=== PATIENT | female | born 1960 | race American Indian/Alaskan Native ===

== ENCOUNTER 2018-06-13 14:59 | Outpatient (CLI) | payer BC, OTHER | END 2018-06-13 15:00 | disposition home or self-care (01) | LOC: LABHHL 14:59 | PROVIDERS: ATTEND Surgery | DX: D24.2 Benign neoplasm of left breast (principal) | CPT/HCPCS: 88305 ==

== ENCOUNTER 2018-07-24 06:07 | Day surgery (SDC) | payer BC ==
[2018-07-24] MEDS ORDERED: ANCEF/STERILE WATER 2 GM/20 ML IV NR (07:00)
[2018-07-24] MEDS ORDERED: DEMEROL IV PRN (07:09)
[2018-07-24] MEDS ORDERED: ZOFRAN IV PRN (07:09)
[2018-07-24] MEDS ORDERED: DILAUDID IV PRN (07:09)
[2018-07-24] MEDS ORDERED: TORADOL IV PRN (07:09)
[2018-07-24] MEDS ORDERED: DIPRIVAN 10 MG/ML IV ONE ×2 (07:23→07:46)
[2018-07-24] MEDS ORDERED: XYLOCAINE MPF 2% ONE (07:23)
[2018-07-24] MEDS ORDERED: ROBINUL ONE (07:25)
[2018-07-24] MEDS ORDERED: XYLOCAINE 1% 20 mL ONE (07:32)
[2018-07-24] MEDS ORDERED: MARCAINE 0.25% INFILTRATI ONE ×2 (07:32→08:38)
[2018-07-24] MEDS ORDERED: VERSED ONE (07:41)
[2018-07-24] MEDS ORDERED: DILAUDID ONE (07:46)
--- NOTE | 2018-07-24 07:52 | Anesthesia Day of Surgery ---
Anesthesia Day of Surgery - Day of Surgery Patient Examined: Yes Patient H&P Reviewed: Yes Patient is NPO: Yes
--- NOTE | 2018-07-24 07:53 | Anesthesia Consultation ---
Anesthesia Consult and Med Hx Date of service: 07/24/18 - Airway Anesthetic Teeth Evaluation: Good ROM Head & Neck: Adequate Mental/Hyoid Distance: Adequate Mallampati Class: Class II Intubation Access Assessment: Probably Good - Pulmonary Exam CTA: Yes - Cardiac Exam Cardiac Exam: RRR - Pre-Operative Health Status ASA Pre-Surgery Classification: ASA3 Proposed Anesthetic Plan: General (GA with LMA ok,GERD controlled, HTN, DM, no hx of PONV) - Cardiovascular System Hx Hypertension: Yes (SINCE 2005) - Central Nervous System Hx Psychiatric Problems: No - Other Systems Hx Alcohol Use: No Hx Substance Use: No Hx Cancer: No
[2018-07-24] MEDS ORDERED: VERSED IV NR (08:00)
[2018-07-24] MEDS ORDERED: LACTATED RINGERS 1,000 ML IV SCH ×2 (08:00)
[2018-07-24] MEDS ORDERED: SUBLIMAZE ONE (08:37)
[2018-07-24] MEDS ORDERED: XYLOCAINE 1% 20 mL INFILTRATI ONE (08:38)
[2018-07-24] MEDS ORDERED: ZOFRAN ONE (08:48)
[2018-07-24] MEDS ORDERED: NACL 0.9% IR ONE (08:54)
--- NOTE | 2018-07-24 09:40 | Operative Report ---
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 Findings: Known left breast fibroadenoma at the 9 o'clock position with excisional biopsy performed Complications: None Drains: None Estimated blood loss: Minimal Disposition: PACU in good condition Indication for operative procedure: This is a 57-year-old lady with known left breast fibroadenoma at the 9:00 position 5 cm from the nipple. Patient wished to proceed with right breast excisional biopsy of fibroadenoma given symptomatic pain. Patient wished to proceed with the above procedure. The patient was procedure in detail: The patient was taken to the operating room and was laid supine. General anesthesia was administered. The left breast fibroadenoma was palpable at the 9 o'clock position 5 cm from the nipple and confirmed under ultrasound. The left breast was prepped and draped in the normal sterile operative fashion. Timeout was performed. A breast incision was made with a 15 blade knife at the 9:00 position about 5 cm from the nipple with dissection taken down to the subcutaneous tissues. The fibroadenoma was encountered and was dissected free with the aid of the Bovie cautery. The specimen was sent to radiology with clip present and then sent to pathology. Hemostasis was then obtained using the Bovie cautery. The breast cavity was irrigated and suctioned. The deep breast tissues were approximated and closed using interrupted 3-0 Vicryl and skin brought together and closed using a running 4-0 Monocryl followed by skin affix. She tolerated surgery very well and was awakened from anesthesia without any complication and transported to PACU in good condition.
--- NOTE | 2018-07-24 09:43 | Short Stay Summary ---
Short Stay Documentation Date of service: 07/24/18 - History H&P: obtained from office - Allergies and Medications Current Medications: Allergies acetaminophen [From Vicodin] Allergy (Verified 07/17/18 14:18) Chest Pain hydrocodone [From Vicodin] Allergy (Verified 07/17/18 14:18) Chest Pain morphine Allergy (Verified 07/17/18 14:18) Itching prednisone Allergy (Verified 07/17/18 14:18) Dizziness and Vomiting Home Medications Medication Instructions Recorded Confirmed Last Taken Type Amlodipine Besylate [Norvasc] 5 mg PO DAILY 07/17/18 07/24/18 07/24/18 05:40 History Ascorbic Acid [Vitamin C] 500 mg PO DAILY 07/17/18 07/24/18 07/23/18 05:00 History Cyanocobalamin (Vitamin B-12) 1,000 mcg PO DAILY 07/17/18 07/24/18 07/23/18 05: 00 History [Vitamin B-12] Dulaglutide [Trulicity] 0.75 mg SQ QWEEK 07/17/18 07/24/18 07/23/18 05:00 History Garlic 1,000 mg PO DAILY 07/17/18 07/24/18 07/23/18 05:00 History Insulin Aspart [Novolog] 0 unit SQ AC 07/17/18 07/17/18 Unknown History Losartan/Hydrochlorothiazide 1 each PO DAILY 07/17/18 07/24/18 07/23/18 05:00 History [Losartan-Hctz 100-25 mg Tab] Omeprazole 40 mg PO DAILY 07/17/18 07/24/18 07/24/18 05:40 History Simvastatin [Zocor TAB] 20 mg PO QHS 07/17/18 07/24/18 07/23/18 05:00 History Active Medications Cefazolin Sodium (Ancef/Sterile Water 2 Gm/20 Ml) 2 gm IV PREOP NR Stop: 07/24/18 23:45 Hydromorphone HCl (Dilaudid) 0.5 mg IV Q10MIN PRN PRN Reason: Pain , Severe (7-10) Stop: 07/24/18 20:00 Lactated Ringer's (Lactated Ringers) 1,000 mls @ 100 mls/hr IV DIRECT JACK Stop: 07/24/18 22:00 Lactated Ringer's (Lactated Ringers) 1,000 mls @ 100 mls/hr IV DIRECT JACK Stop: 07/24/18 10:00 Last Admin: 07/24/18 07:36 Dose: 100 mls/hr Ketorolac Tromethamine (Toradol) 30 mg IV ONCE PRN PRN Reason: Pain, Moderate (4-6) Stop: 07/24/18 12:00 Meperidine HCl (Demerol) 25 mg IV ONCE PRN PRN Reason: Shivering Stop: 07/24/18 20:00 Midazolam HCl (Versed) 2 mg IV PREOP NR Stop: 07/24/18 23:59 Ondansetron HCl (Zofran) 4 mg IV ONCE PRN PRN Reason: Nausea And Vomiting Stop: 07/24/18 20:00 - Brief post op/procedure progress note Date of procedure: 07/24/18 Pre-op diagnosis: 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 Post-op diagnosis: same Procedure: Left breast fibroadenoma excisional biopsy of the upper inner quadrant Anesthesia: GETA Findings: Left breast fibroadenoma at the 9:00 position Surgeon: RADHA YATES Estimated blood loss: minimal Pathology: list (fibroadenoma) Specimen disposition: to lab Condition: stable - Disposition Condition at discharge: Good Disposition: DC-01 TO HOME OR SELFCARE Short Stay Discharge Plan Activity: other (no heavy lifting) Diet: regular Wound: other (keep incision clean and dry and may shower in 24 hours; no baths, pools or lakes; do not rub or scrub incision) Follow up with: DIMA FREEMAN [Other] - 7 Days RADHA YATES MD [Staff Physician] - 7 Days Prescriptions: traMADol [Ultram 50 MG tab] 50 mg PO Q6HR PRN #25 tablet PRN Reason: Pain
--- NOTE | 2018-07-24 10:22 | Mammography Report ---
SPECIMEN RADIOGRAPH LEFT BREAST: 07/24/18 06:07:00 CLINICAL: Surgical excision of fibroadenoma. FINDINGS: A mass with a biopsy clip is identified within the specimen. IMPRESSION: Excision of the targeted mass.
[2018-07-24] MEDS ORDERED: REGLAN IV PRN (10:45)
[2018-07-24 11:52] VITALS: BP 156/78
--- NOTE | 2018-07-24 12:03 | Post Anesthesia Evaluation ---
- Post Anesthesia Evaluation Patient Participated: Yes Airway Patent: Yes Stable Respiratory Function: Yes Nausea/Vomiting: No Temp > 96.8F: Yes Pain Manageable: Yes Adequeate Hydration: Yes Anesthesia Complications: No
== END 2018-07-24 06:08 | disposition home or self-care (01) ==
LOC: OR 06:07
PROVIDERS: ATTEND Surgery
DX: D24.2 Benign neoplasm of left breast (principal); I10 Essential (primary) hypertension; E78.00 Pure hypercholesterolemia, unspecified; K21.9 Gastro-esophageal reflux disease without esophagitis; E11.9 Type 2 diabetes mellitus without complications; Z79.4 Long term (current) use of insulin; Z79.899 Other long term (current) drug therapy; Z88.1 Allergy status to other antibiotic agents; Z88.5 Allergy status to narcotic agent; Z88.8 Allergy status to other drugs, medicaments and biological substances; Z90.710 Acquired absence of both cervix and uterus; Z90.49 Acquired absence of other specified parts of digestive tract; Z98.891 History of uterine scar from previous surgery; Z80.9 Family history of malignant neoplasm, unspecified
CPT/HCPCS: 19120; 36415; 76098; 82962; 84132; 88307; J0690; J1170; J2250; J2405; J2704; J3010; J7120

== ENCOUNTER 2022-05-24 16:00 | Emergency (ER) | payer OTHER ==
--- NOTE | 2022-05-24 20:06 | Emergency Department Report ---
ED General Adult HPI - General Chief complaint: Syncope Stated complaint: SYNCOPAL EPISODE Time Seen by Provider: 05/24/22 20:03 Source: EMS Mode of arrival: Stretcher Limitations: No Limitations - History of Present Illness Initial comments: The patient presents to the emergency department with a chief complaint of a syncopal episode. Patient states she was at work when she passed out. Patient states she got up from her desk and was walking and fell lightheaded and then passed out. Patient states she has a history of syncope and has been thoroughly worked up by of [facility]. Patient states she has been diagnosed with PSVT and is supposed to take metoprolol 25 mg twice daily but has only been taking it once daily. Patient denies any chest pain prior to or after the incident. Patient states she was told by direct marketing executive to call for bear down whenever she feels like she is going to pass out. -: Sudden Severity scale (0 -10): 0 Consistency: now resolved Improves with: none Worsens with: none Associated Symptoms: denies other symptoms Treatments Prior to Arrival: none - Related Data Home Medications Medication Instructions Recorded Confirmed Last Taken Amlodipine Besylate [Norvasc] 5 mg PO DAILY 07/17/18 07/24/18 07/24/18 05:40 Ascorbic Acid [Vitamin C] 500 mg PO DAILY 07/17/18 07/24/18 07/23/18 05:00 Cyanocobalamin (Vitamin B-12) 1,000 mcg PO DAILY 07/17/18 07/24/18 07/23/18 05:00 [Vitamin B-12] Dulaglutide [Trulicity] 0.75 mg SQ QWEEK 07/17/18 07/24/18 07/23/18 05:00 Garlic 1,000 mg PO DAILY 07/17/18 07/24/18 07/23/18 05:00 Insulin Aspart (Nf) [Novolog] 0 unit SQ AC 07/17/18 07/17/18 Unknown Losartan/Hydrochlorothiazide 1 each PO DAILY 07/17/18 07/24/18 07/23/18 05:00 [Losartan-Hctz 100-25 mg Tab] Omeprazole 40 mg PO DAILY 07/17/18 07/24/18 07/24/18 05:40 Simvastatin (Nf) [Zocor TAB] 20 mg PO QHS 07/17/18 07/24/18 07/23/18 05:00 Previous Rx's Medication Instructions Recorded Last Taken Type traMADoL [Ultram 50 MG tab] 50 mg PO Q6HR PRN #25 tablet 07/24/18 Unknown Rx Allergies Allergy/AdvReac Type Severity Reaction Status Date / Time acetaminophen [From Vicodin] Allergy Chest Pain Verified 07/17/18 14:18 hydrocodone [From Vicodin] Allergy Chest Pain Verified 07/17/18 14:18 morphine Allergy Itching Verified 07/17/18 14:18 prednisone Allergy Dizziness Verified 07/17/18 14:18 and Vomiting ED Review of Systems ROS: Stated complaint: SYNCOPAL EPISODE Other details as noted in HPI Comment: All other systems reviewed and negative Constitutional: denies: chills, fever Eyes: denies: eye pain, eye discharge, vision change ENT: denies: ear pain, throat pain Respiratory: denies: cough, shortness of breath, wheezing Cardiovascular: denies: chest pain, palpitations Endocrine: no symptoms reported Gastrointestinal: denies: abdominal pain, nausea, diarrhea Genitourinary: denies: urgency, dysuria, discharge Musculoskeletal: denies: back pain, joint swelling, arthralgia Skin: denies: rash, lesions Neurological: denies: headache, weakness, paresthesias Psychiatric: denies: anxiety, depression Hematological/Lymphatic: denies: easy bleeding, easy bruising ED Past Medical Hx - Past Medical History Previous Medical History?: Yes Hx Hypertension: Yes (SINCE 2005) Hx Diabetes: Yes (SINCE 2005, INSULIN PUMP AND TRULICITY) Hx GERD: Yes Hx HIV: No - Surgical History Hx Cholecystectomy: Yes Hx Breast Surgery: Yes (REDUCTION) - Social History Smoking Status: Never Smoker - Medications Home Medications: Home Medications Medication Instructions Recorded Confirmed Last Taken Type Amlodipine Besylate [Norvasc] 5 mg PO DAILY 07/17/18 07/24/18 07/24/18 05:40 H istory Ascorbic Acid [Vitamin C] 500 mg PO DAILY 07/17/18 07/24/18 07/23/18 05:00 History Cyanocobalamin (Vitamin B-12) 1,000 mcg PO DAILY 07/17/18 07/24/18 07/23/18 05:00 History [Vitamin B-12] Dulaglutide [Trulicity] 0.75 mg SQ QWEEK 07/17/18 07/24/18 07/23/18 05:00 History Garlic 1,000 mg PO DAILY 07/17/18 07/24/18 07/23/18 05:00 History Insulin Aspart (Nf) [Novolog] 0 unit SQ AC 07/17/18 07/17/18 Unknown History Losartan/Hydrochlorothiazide 1 each PO DAILY 07/17/18 07/24/18 07/23/18 05:00 History [Losartan-Hctz 100-25 mg Tab] Omeprazole 40 mg PO DAILY 07/17/18 07/24/18 07/24/18 05:40 History Simvastatin (Nf) [Zocor TAB] 20 mg PO QHS 07/17/18 07/24/18 07/23/18 05:00 History traMADoL [Ultram 50 MG tab] 50 mg PO Q6HR PRN #25 tablet 07/24/18 Unknown Rx ED Physical Exam - General Limitations: No Limitations General appearance: alert, in no apparent distress - Head Head exam: Present: atraumatic, normocephalic - Eye Eye exam: Present: normal appearance, PERRL, EOMI - ENT ENT exam: Present: mucous membranes moist - Neck Neck exam: Present: normal inspection - Respiratory Respiratory exam: Present: normal lung sounds bilaterally. Absent: respiratory distress - Cardiovascular Cardiovascular Exam: Present: normal rhythm, tachycardia. Absent: systolic murmur, diastolic murmur, rubs, gallop - GI/Abdominal GI/Abdominal exam: Present: soft, normal bowel sounds. Absent: distended, tenderness - Extremities Exam Extremities exam: Present: normal inspection - Back Exam Back exam: Present: normal inspection - Neurological Exam Neurological exam: Present: alert, oriented X3, CN II-XII intact. Absent: motor sensory deficit - Psychiatric Psychiatric exam: Present: normal affect, normal mood - Skin Skin exam: Present: warm, dry, intact, normal color. Absent: rash ED Course Vital Signs 05/24/22 05/24/22 16:58 20:57 Temperature 98.0 F Pulse Rate 98 H 93 H Respiratory 16 15 Rate Blood Pressure 195/108 [Right] O2 Sat by Pulse 100 Oximetry ED Medical Decision Making - Lab Data Result diagrams: 05/24/22 20:24 05/24/22 20:24 Lab Results 05/24/22 05/24/22 Range/Units 20:24 20:24 WBC 9.6 (4.5-11.0) K/mm3 RBC 3.89 (3.65-5.03) M/mm3 Hgb 11.8 (10.1-14.3) gm/dl Hct 34.4 (30.3-42.9) % MCV 88 (79-97) fl MCH 30 (28-32) pg MCHC 34 (30-34) % RDW 14.3 (13.2-15.2) % Plt Count 328 (140-440) K/mm3 Lymph % (Auto) 19.6 (13.4-35.0) % [place] % (Auto) 4.0 (0.0-7.3) % Eos % (Auto) 0.2 (0.0-4.3) % Baso % (Auto) 0.9 (0.0-1.8) % Lymph # (Auto) 1.9 (1.2-5.4) K/mm3 [place] # (Auto) 0.4 (0.0-0.8) K/mm3 Eos # (Auto) 0.0 (0.0-0.4) K/mm3 Baso # (Auto) 0.1 (0.0-0.1) K/mm3 Seg Neutrophils % 75.3 H (40.0-70.0) % Seg Neutrophils # 7.2 (1.8-7.7) K/mm3 Sodium 140 (137-145) mmol/L Potassium 5.1 H (3.6-5.0) mmol/L Chloride 100.9 (98-107) mmol/L Carbon Dioxide 27 (22-30) mmol/L Anion Gap 17 mmol/L BUN 14 (7-17) mg/dL Creatinine 0.8 (0.6-1.2) mg/dL Estimated GFR > 60 ml/min BUN/Creatinine Ratio 18 % Glucose 167 H (65-100) mg/dL Calcium 10.2 (8.4-10.2) mg/dL Magnesium 2.00 (1.7-2.3) mg/dL Total Bilirubin 0.30 (0.1-1.2) mg/dL AST 40 (5-40) units/L ALT 43 (7-56) units/L Alkaline Phosphatase 91 (35-129) units/L Troponin T < 0.010 (0.00-0.029) ng/mL Total Protein 7.5 (6.3-8.2) g/dL Albumin 4.6 (3.9-5) g/dL Albumin/Globulin Ratio 1.6 % - EKG Data -: EKG Interpreted by Me EKG shows normal: sinus rhythm - EKG Data Interpretation: [facility] - Radiology Data Radiology results: report reviewed - Medical Decision Making Patient's potassium is 5.1. Discussed with patient this is likely elevated secondary to use of losartan. Patient's heart rate decreased from 1 20-91 in the emergency department without intervention. Discussed with patient and need to take her beta-bonita 2 times daily as prescribed by her direct marketing executive. Critical care attestation.: If time is entered above; I have spent that time in minutes in the direct care of this critically ill patient, excluding procedure time. ED Disposition Clinical Impression: Vasovagal episode Disposition: 01 HOME / SELF CARE / HOMELESS Is pt being admited?: No Does the pt Need Aspirin: No Condition: Stable Instructions: Syncope (ED), Syncope, Near-Syncope Additional Instructions: Return if worse Referrals: PRIMARY CAREMD [Primary Care Provider] - 3-5 Days WILLIAM ROUSE MD [Staff Physician] - 3-5 Days Time of Disposition: 22:18
[2022-05-24 21:06] LABS: Basophils # (Auto) 0.1 K/mm3 (0.0-0.1); Basophils % (Auto) 0.9 % (0.0-1.8); Eosinophils % (Auto) 0.2 % (0.0-4.3); Hematocrit 34.4 % (30.3-42.9); Hemoglobin 11.8 gm/dl (10.1-14.3); Lymphocytes # (Auto) 1.9 K/mm3 (1.2-5.4); Lymphocytes % (Auto) 19.6 % (13.4-35.0); Mean Corpuscular HGB Conc 34 % (30-34); Mean Corpuscular Volume 88 fl (79-97); Monocytes # (Auto) 0.4 K/mm3 (0.0-0.8); Platelet Count 328 K/mm3 (140-440); Red Blood Count 3.89 M/mm3 (3.65-5.03); Red Cell Distribution Width 14.3 % (13.2-15.2)
[2022-05-24 21:34] LABS: Alanine Aminotransferase 43 units/L (7-56); Albumin 4.6 g/dL (3.9-5); BUN/Creatinine Ratio 18; Blood Urea Nitrogen 14 mg/dL (7-17); Calcium 10.2 mg/dL (8.4-10.2); Hemolysis Index 24
[2022-05-24 22:28] VITALS: BP 134/71
--- NOTE | 2022-05-25 10:07 | Electrocardiograph Report ---
[facility] Test Date: 2022-05-24 Test Time: 22:03:00 Pat Name: MAKENZIE SMITH Department: Room: Gender: F [employer] Chief: LATONIA : 1960 Requested By: AGGIE BLACKBURN Order Number: [id number] Reading MD: Mark Escamilla Measurements Intervals [place] Rate: 87 P: 27 SC: 161 QRS: -31 QRSD: 90 T: 49 QT: 392 QTc: 473 Interpretive Statements Sinus rhythm Probable left atrial enlargement Left ventricular hypertrophy No previous ECG available for comparison Electronically Signed On 05-25-2022 10:07:32 EDT by Mark Escamilla
== END 2022-05-24 22:28 | disposition home or self-care (01) ==
LOC: ED 16:00
DX: R55 Syncope and collapse (principal); I10 Essential (primary) hypertension; E11.9 Type 2 diabetes mellitus without complications; K21.9 Gastro-esophageal reflux disease without esophagitis; Z90.49 Acquired absence of other specified parts of digestive tract; Z88.6 Allergy status to analgesic agent; Z91.09 Other allergy status, other than to drugs and biological substances; Z79.899 Other long term (current) drug therapy
CPT/HCPCS: 36415; 80053; 83735; 84484; 85025; 93005; 99283